=== PATIENT | male | born 1990 | race African-American/Black ===

== ENCOUNTER 2023-06-12 15:32 | Emergency (ER) | payer OTHER ==
[~2023-06-12] VITALS: Ht 182.9 cm; Wt 77.2 kg
[2023-06-12 15:55] VITALS: BP 112/75; PULSE 68; RESP 18; TEMP 98.5; O2SAT 100
[2023-06-12] MEDS: ACETAMINOPHEN 325MG TABLET PO ONE (16:58)
[2023-06-12] MEDS ORDERED: NAPR500T7 MT (18:12)
[2023-06-12] MEDS: KETOROLAC 15MG/ML VIAL IM ONE (18:47)
== END 2023-06-12 18:48 | disposition home or self-care (01) ==
LOC: ER 15:32
DX: G89.29 Other chronic pain (principal); M25.561 Pain in right knee; J45.909 Unspecified asthma, uncomplicated; Z98.890 Other specified postprocedural states
CPT/HCPCS: 73560; 99283

== ENCOUNTER 2024-01-13 18:36 | Emergency (ER) | payer MEDICAID, OTHER ==
[~2024-01-13] VITALS: Ht 182.9 cm; Wt 77.1 kg
[~2024-01-13 18:36] MED LIST: NAPR500T7 MT
[2024-01-13 18:50] VITALS: BP 116/71; PULSE 70; RESP 16; TEMP 98.1; O2SAT 98
[2024-01-13] MEDS ORDERED: LIDO700A15 TP (21:02)
[2024-01-13] MEDS ORDERED: NAPR-1176 MT (21:02)
[2024-01-13] MEDS: KETOROLAC 15MG/ML VIAL IM ONE (21:23)
== END 2024-01-13 21:27 | disposition home or self-care (01) ==
LOC: ER 18:36
DX: G89.29 Other chronic pain (principal); M25.561 Pain in right knee; J45.909 Unspecified asthma, uncomplicated
CPT/HCPCS: 96372; 99283; J1885; Z7610

== ENCOUNTER 2024-01-26 18:18 | Emergency (ER) | payer MEDICAID, OTHER ==
[~2024-01-26] VITALS: Ht 188 cm; Wt 86.0 kg
[~2024-01-26 18:18] MED LIST changes: +LIDO700A15 TP; +NAPR-1176 MT
[2024-01-26 18:47] VITALS: O2SAT 99
[2024-01-26] MEDS ORDERED: IBUP-2028 MT (19:26)
[2024-01-26 19:55] VITALS: BP 123/81; PULSE 75; RESP 16; TEMP 36.39180; O2SAT 99
== END 2024-01-26 20:15 | disposition home or self-care (01) ==
LOC: ER 18:18
DX: M25.562 Pain in left knee (principal); J45.909 Unspecified asthma, uncomplicated; Z79.1 Long term (current) use of non-steroidal anti-inflammatories (NSAID)
CPT/HCPCS: 73560; 99283

== ENCOUNTER 2024-07-07 20:55 | Emergency (ER) | payer MEDICAID, OTHER ==
[~2024-07-07] VITALS: Ht 180.3 cm; Wt 78.2 kg
[~2024-07-07 20:55] MED LIST changes: +IBUP-2028 MT; +NAPR-1486 MT; -NAPR500T7 MT
[2024-07-07 21:06] VITALS: TEMP 36.8; O2SAT 100
[2024-07-07 21:11] VITALS: O2SAT 100
[2024-07-07] MEDS: KETOROLAC 15MG/ML VIAL IM ONE ×2 (22:41→22:53)
[2024-07-07 22:53] VITALS: BP 118/73; PULSE 61; RESP 14
== END 2024-07-08 00:29 | disposition home or self-care (01) ==
LOC: ER 20:55
DX: G89.29 Other chronic pain (principal); M25.561 Pain in right knee; J45.909 Unspecified asthma, uncomplicated; Z79.1 Long term (current) use of non-steroidal anti-inflammatories (NSAID)
CPT/HCPCS: 99284; 73562; 96372; J1885